=== PATIENT | male | born 1980 | race Caucasian/White ===

== ENCOUNTER 2017-12-23 18:05 | Inpatient (IN) | payer SELFPAY ==
[~2017-12-23] VITALS: Ht 175.3 cm; Wt 129.3 kg
[2017-12-23 19:23] LABS: CHLORIDE 96 mEq/L (98-107)
[2017-12-23] MEDS ORDERED: SODIUM CHLORIDE 0.9% 1,000 ML IV ONE ×2 (19:27→19:30)
[2017-12-23 19:32] LABS: PHOSPHORUS 2.8 mg/dL (2.5-4.9)
[2017-12-23 20:03] LABS: BASOPHILS % 0.5 % (0.0-2.0); HEMATOCRIT. 44.4 % (42.0-52.0); HEMOGLOBIN. 15.7 g/dL (14.0-18.0); LYMPHOCYTES % 29.2 % (20.0-50.0); MEAN CORPUSCULAR HEMOGLOBIN 30.4 pg (28.0-32.0); MEAN CORPUSCULAR VOLUME 86.2 fL (80.0-94.0); MEAN PLATELET VOLUME 9.7 fl (7.4-10.4); MONOCYTES % 9.2 % (2.0-8.0); NEUTROPHILS % 60.1 % (40.0-76.0); PLATELET 198 x1000/uL (130-400); RED BLOOD CELL COUNT 5.15 mill/uL (4.7-6.1); RED CELL DISTRIBUTION WIDTH 13.2 % (11.6-14.6)
[2017-12-23] MEDS ORDERED: INSULIN REGULAR (HUMULIN R) 300UNITS/3ML SUBCUT ONE ×2 (20:15→20:45)
[2017-12-23 20:28] LABS: CLARITY URINE CLEAR (CLEAR); COLOR URINE YELLOW (YELLOW); KETONES URINE 2+ (NEGATIVE); LEUKOCYTE ESTERASE URINE NEGATIVE (NEGATIVE); NITRITE URINE NEGATIVE (NEGATIVE); OCCULT BLOOD URINE 2+ (NEGATIVE); PROTEIN URINE 1+ (NEGATIVE); SPECIFIC GRAVITY URINE 1.045 (1.005-1.030)
[2017-12-24] VITALS (7 sets, daily range): BP systolic 107–127; BP diastolic 64–84
[2017-12-24] MEDS ORDERED: DEXTROSE 50% WATER 50ML SYRINGE IV PRN (02:15)
[2017-12-24] MEDS: METFORMIN HCL 500MG TABLET PO SCH ×3 (02:57→18:38)
[2017-12-24] MEDS ORDERED: GLIMEPIRIDE 4MG TABLET PO SCH ×2 (03:00→08:30)
[2017-12-24 06:32] LABS: CHLORIDE 102 mEq/L (98-107)
[2017-12-24 06:33] LABS: BASOPHILS % 0.4 % (0.0-2.0); EOSINOPHILS % 1.4 % (0.0-5.0); HEMATOCRIT. 39.6 % (42.0-52.0); HEMOGLOBIN. 13.9 g/dL (14.0-18.0); LYMPHOCYTES % 31.4 % (20.0-50.0); MEAN CORPUSCULAR HEMOGLOBIN 30.4 pg (28.0-32.0); MEAN CORPUSCULAR VOLUME 86.2 fL (80.0-94.0); MEAN PLATELET VOLUME 9.2 fl (7.4-10.4); NEUTROPHILS % 56.8 % (40.0-76.0); PLATELET 171 x1000/uL (130-400); RED BLOOD CELL COUNT 4.59 mill/uL (4.7-6.1); RED CELL DISTRIBUTION WIDTH 13.5 % (11.6-14.6)
[2017-12-24 06:39] LABS: LDL CHOLESTEROL 100 mg/dL (5-100)
[2017-12-24 06:41] LABS: HDL CHOLESTEROL 23 mg/dL (40-59)
[2017-12-24] MEDS: BLOOD SUGAR DIAGNOSTIC STRIP TEST SCH ×4 (07:33→21:21)
[2017-12-24] MEDS ORDERED: POTASSIUM CHLORIDE 20MEQ TABLET SR PO SCH (08:15)
[2017-12-24] MEDS: ENOXAPARIN 30MG/0.3ML SYR SUBCUT SCH ×2 (08:45→21:21)
[2017-12-24] MEDS: INSULIN LISPRO 100 UNITS/ML SUBCUT SCH ×4 (08:48→21:24)
[2017-12-24] MEDS: LINAGLIPTIN 5MG TABLET PO SCH (12:01)
[2017-12-24] MEDS ORDERED: METFORMIN HCL 500MG TABLET PO SCH ×2 (18:10)
[2017-12-25] VITALS: BP 116/72
[2017-12-25 04:00] VITALS: BP 109/77
[2017-12-25] MEDS: BLOOD SUGAR DIAGNOSTIC STRIP TEST SCH ×3 (05:57→16:35)
[2017-12-25 06:52] LABS: CHLORIDE 103 mEq/L (98-107)
[2017-12-25 07:05] LABS: BASOPHILS % 0.6 % (0.0-2.0); EOSINOPHILS % 1.3 % (0.0-5.0); HEMATOCRIT. 40.7 % (42.0-52.0); HEMOGLOBIN. 14.5 g/dL (14.0-18.0); LYMPHOCYTES % 28.8 % (20.0-50.0); MEAN CORPUSCULAR HEMOGLOBIN 30.9 pg (28.0-32.0); MEAN CORPUSCULAR VOLUME 86.6 fL (80.0-94.0); MEAN PLATELET VOLUME 9.5 fl (7.4-10.4); NEUTROPHILS % 60.3 % (40.0-76.0); PLATELET 174 x1000/uL (130-400); RED BLOOD CELL COUNT 4.71 mill/uL (4.7-6.1); RED CELL DISTRIBUTION WIDTH 13.7 % (11.6-14.6)
[2017-12-25 08:00] VITALS: BP 110/77
[2017-12-25] MEDS: ENOXAPARIN 30MG/0.3ML SYR SUBCUT SCH (08:34)
[2017-12-25] MEDS: METFORMIN HCL 500MG TABLET PO SCH (08:35)
[2017-12-25] MEDS: GLIMEPIRIDE 4MG TABLET PO SCH ×2 (08:35→16:39)
[2017-12-25] MEDS: LINAGLIPTIN 5MG TABLET PO SCH (08:35)
[2017-12-25] MEDS: INSULIN LISPRO 100 UNITS/ML SUBCUT SCH ×2 (08:37→13:01)
[2017-12-25] MEDS ORDERED: CALCIUM CARBONATE 1250MG TABLET (500MG ELEMENTAL CALCIUM) PO SCH (10:30)
[2017-12-25 12:00] VITALS: BP 104/73
[2017-12-25] MEDS ORDERED: ATORVASTATIN CALCIUM 10MG TABLET PO SCH (12:15)
[2017-12-25 13:24] VITALS: BP_SYST 104; BP_SYST 106; BP_DIAS 65; BP_DIAS 73
[2017-12-25 16:00] VITALS: BP 106/65
== END 2017-12-25 17:19 | disposition home or self-care (01) | DRG 420 ==
LOC: ER 18:05 → 7WST 20:30 → EDBEDREQ 20:35 → ENRESERV 21:49
PROVIDERS: ADMIT Internal Medicine Geriatric Medicine; ATTEND Internal Medicine Geriatric Medicine
DX: E11.00 Type 2 diabetes mellitus with hyperosmolarity without nonketotic hyperglycemic-hyperosmolar coma (NKHHC) (principal); E83.51 Hypocalcemia; E11.10 Type 2 diabetes mellitus with ketoacidosis without coma; E66.9 Obesity, unspecified; E78.5 Hyperlipidemia, unspecified; E86.0 Dehydration; E87.6 Hypokalemia; H53.8 Other visual disturbances; Z79.84 Long term (current) use of oral hypoglycemic drugs; Z68.41 Body mass index [BMI] 40.0-44.9, adult
CPT/HCPCS: 36415; 80048; 80053; 80061; 81003; 82010; 82962; 83036; 83735; 84100; 85025; 93005; 96360; 96361; 96372; 99285; J1650; J1815; J7030